=== PATIENT | male | born 1985 | race Caucasian/White ===

== ENCOUNTER 2017-04-26 09:15 | Emergency (ER) | payer OTHER ==
[2017-04-26 10:30] VITALS: BP 144/84
--- NOTE | 2017-04-26 10:46 | UC ---
Throat Pain/Nasal Kojo HPI - HPI Summary HPI Summary: 31 [address] states for past week has been waking with sore throat that resolved throughout the day and left eye redness, denies vision changes.had strep a few years ago and feels differently but still with sore throat . left eye red for 2 days. no pain. no vision changes. itchy at times. has had some yellow discharge each of the last 2 morning [ End ] - History of Current Complaint Chief Complaint: UCEye Stated Complaint: SORE THROAT, EYE IRRITATION Time Seen by Provider: 04/26/17 10:42 Hx Obtained From: Patient Onset/Duration: Gradual Onset Severity: Moderate Pain Intensity: 0 - Allergies/Home Medications Allergies/Adverse Reactions: Allergies Allergy/AdvReac Type Severity Reaction Status Date / Time No Known Allergies Allergy Verified 04/26/17 10:27 PMH/Surg Hx/FS Hx/Imm Hx Previously Healthy: Yes - Surgical History Surgical History: None - Family History Known Family History: Positive: None - Social History Occupation: Employed Full-time Lives: With Family Alcohol Use: None Substance Use Type: None Smoking Status (MU): Never Smoked Tobacco Review of Systems Eyes: Eye Redness ENT: Sore Throat Is Patient Immunocompromised?: No All Other Systems Reviewed And Are Negative: Yes Physical Exam Triage Information Reviewed: Yes Appearance: Well-Appearing, No Pain Distress, Well-Nourished Vital Signs: Initial Vital Signs Temp 98.1 F 04/26/17 10:26 Pulse 93 04/26/17 10:26 Resp 18 04/26/17 10:26 BP 144/84 04/26/17 10:26 Pulse Ox 99 04/26/17 10:26 Vital Signs Reviewed: Yes Eye Exam: Normal Eyes: Positive: Other: - left sclera red / injected ENT Exam: Normal ENT: Positive: Pharyngeal erythema. Negative: TM bulging, TM dull, TM red, Tonsillar swelling, Tonsillar exudate Dental Exam: Normal Neck exam: Normal Neck: Positive: 1 Respiratory Exam: Normal Cardiovascular Exam: Normal Musculoskeletal Exam: Normal Neurological Exam: Normal Psychological Exam: Normal Skin Exam: Normal Throat Pain/Nasal Course/Dx - Course Course Of Treatment: neg strep testing. treat eye at this time. go to Optho tomorrow if not improved as there is concern for viral conjunctivitis and he agrees he will go . - Differential Dx/Diagnosis Differential Diagnosis/HQI/PQRI: Pharyngitis, URI Provider Diagnoses: left eye Conjunctivitis / pharyngitis Discharge - Discharge Plan Condition: Good Disposition: HOME Prescriptions: Ofloxacin 0.3%(Ophth)(Nf) [Ocuflox OPTH 0.3%(NF)] 1 drop LEFT EYE Q4HR 5 Days # 1 btl Patient Education Materials: Conjunctivitis (ED) Referrals: No Primary Care Phys,NOPCP [Primary Care Provider] - 3 Days Burton Weiner OD [Doctor of Osteopathy] - 2 Days (Optho referral ) Additional Instructions: You may have a viral pink eye and advised to go to Ophthalmology tomorrow or the next day if your symptoms are not rapidly improving
== END 2017-04-26 11:14 | disposition home or self-care (01) ==
LOC: UCCORT 09:15
DX: H10.9 Unspecified conjunctivitis (principal); J02.9 Acute pharyngitis, unspecified
CPT/HCPCS: 87651; 99212; G0463